=== PATIENT | female | born 1995 | race Two or more races ===

== ENCOUNTER 2025-04-19 08:18 | Outpatient (AMB) | payer MEDICAID, SELFPAY ==
[2025-04-19 08:36] VITALS: BP 121/79; PULSE 83; RESP 16; TEMP 36.2; O2SAT 98; BMI 37.9
--- NOTE | 2025-04-19 08:36 | OBCLNT_ITS ---
Vital Signs 04/19/25 08:36 Height 1.52 m Height Method Stated Weight 88.167 kg Weight Measurement Method Standing Scale BMI 37.9 BP 121/79 Blood Pressure Source Automatic Cuff Blood Pressure Location Left Upper Arm Position Sitting Respiration 16 Pulse 83 Pulse Source Monitor Temp 97.2 F Temp Source Oral Pulse Oximetry (%) 98 Oxygen Delivery Method Room Air Allergies/Home Meds Allergies & Medications Allergies milk Allergy (Unknown, Verified 04/19/25 08:37) Rash Medication Reconciliation aspirin 81 mg tablet,delayed release 81 mg PO QDAY 04/28/22 [History Confirmed 04/19/25] prenat.vits,sebastian,eyk-htro-eqvcz 1 tab PO QDAY 04/28/22 [History Confirmed 04/19/25] aspirin 81 mg tablet,delayed release (Adult Aspirin Regimen) 81 mg PO QDAY #60 tabs 04/19/25 [Rx] vitamin-ferrous fumarate 28 mg iron-folic acid 800 mcg tablet ( Vitamins with Minerals) 1 tab PO QDAY #60 tabs 04/19/25 [Rx] Intake Visit Data Collection New Patient or Established: Established Patient (seen at [facility] within 3 years) Reason for Visit:: OBC Seen by Clinical Staff ONLY (RN/MA): No 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 1. Little interest or pleasure in doing things: not at all 2. Feeling down, depressed, or hopeless: not at all Total score: 0 PHQ-9 3. Trouble falling or staying asleep, or sleeping too much: Not at all 4. Feeling tired or having little energy: Not at all 5. Poor appetite or overeating: Not at all 6. Feeling bad about yourself - or that you are a failure or have let yourself or your family down: Not at all 7. Trouble concentrating on things, such as reading the newspaper or watching television: Not at all 8. Moving or speaking so slowly that other people could have noticed? - Or the opposite - being so fidgety or restless that you have been moving around a lot more than usual: not at all 9. Thoughts that you would be better off or of hurting yourself in some way: Not at all Total score: 0 If you checked off any problems, how difficult have these problems made it for you to do your work, take care of things at home, or get along with other people?: not difficult at all Source: Developed by Drs. Nick Brunner, Lois Lozano, Alton Stewart and colleagues, with an educational lemuel from [email or web address]. Depression screen completed yes Social History Living Situation History Marital Status: Single Lives With: Family Housing: House Housing Other:: Pt lives w/S.O Tobacco History Smoking Status: Never smoker Second Hand Smoke Exposure: No Alcohol History Alcohol Intake: Never Domestic Abuse History Do You Feel Safe at Home: Yes History of Present Illness HPI Narrative 29-year-old 4 para 2 ectopic 1 for OBI. Patient's last period March 05, 2025. EDC based on her last period is December 10, 2025. Patient denies any social habits. Patient had a surgical removal of ectopic . She denies existence of chronic illnesses. However she had lab work done at [facility] a week ago and they told her she was prediabetic. Unplanned . But patient and partner are happy. She has a sure dates she tracks her. 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 Last period March 05, 2025. Estimated due date December 10, 2025. Patient had 1 ectopic. She denies any first trimester discomforts. Denies SAB complaints. And patient was told that she was prediabetic. History of high blood pressure with her first 11 years ago. Low-dose baby aspirin to start at 12 weeks. I gave her prenatals. Discussed SAB precautions. Schedule for ultrasound for viability at [facility]. For labs she is doing OB panel with a hemoglobin A1c. CMP and hCG. Discussed SAB precautions and I also discussed GDM diet and patient is to start on that. Return in 3 weeks for OB check and NIPT Menstrual History Menstrual reliability: definite Flow: normal Menstrual regularity: regular Monthly: Yes Age at menarche: 15 On control pills at conception: No OB History : 3 Para: 2 Hx # Pregnancies: 0 Hx Total # of Abortions (Spontaneous & Elective): 0 # of Living Children: 2 Delivery History 1st : Child's name: NOT PROVIDED date: 05/04/14 sex: female Delivery type: vaginal weight (lbs): 2721.554 g History of depression before or after : No 2nd : Child's name: NOT PROVIDED date: 05/08/22 sex: male Delivery type: vaginal weight (lbs): 3175.147 g History of depression before or after : No Infection History & Risk Evaluation History of STDs: none HIV risk evaluation: low risk Hepatitis B risk evaluation: low risk Patient or partner has history of Genital Herpes: No Varicella/chicken pox status: immunized Genetic Screening & History Genetic Screening/Teratology Counseling - Includes patient, baby's father, or anyone in either family with: 1. Patient's age 35 years or older as of estimated date of delivery: No 2. Thalassemia (English, Amharic, Mediterranean, or Background); MCV less than 80: No 3. Neural Tube Defect (Meningomyelocele, Spina Bifida, or Anencephaly): No 4. Congenital Heart Defect: No 5. Down Syndrome: No 6. Nehemiah-Sachs (Ashkenazi Voodoo, Cajun, Ghanaian [place]): No 7. Lydia Disease (Ashkenazi Voodoo): No 8. Familial Dysautonomia (Ashkenazi Voodoo): No 9. Sickle Cell Disease or Trait (): No 10. Hemophilia or other blood disorders: No 11. Muscular Dystrophy: No 12. Cystic Fibrosis: No 13. Laramie's Chorea: No 14. Mental Retardation/Autism: No 15. Other inherited genetic or chromosomal disorder: No 16. Maternal Metabolic Disorder (EG,TYPE 1 Diabetes, PKU): No 17. Patient or baby's father had a child with defects not listed above: No 18. Recurrent loss or a stillbirth: No 19. Medications (including supplements, vitamins, herbs or otc drugs)/illicit /recreational drugs/alcohol since last menstrual period: No 20. Any other: No Infection History 1. Live with someone with TB or exposed to TB: No 2. Rash or viral illness since last menstrual period: No 3. Hepatitis B,C: No Other (see comments) Source: [employer] Review of Systems Review of Systems Systems Reviewed: All systems reviewed, normal except as documented Exam General Limitations: no limitations General Appearance: alert, in no apparent distress, comfortable, cooperative, healthy appearing, well developed and well groomed Head Head exam: atraumatic, normocephalic and normal inspection Chest Chest inspection: Present normal inspection and symmetric chest wall rise Resp Respiratory exam: Present normal lung sounds bilaterally Card Cardiovascular exam: Present regular rate, normal rhythm and normal heart sounds Abdominal Abdominal exam: Present soft and normal bowel sounds Psych Psychiatric exam: Present normal affect and normal mood Office Procedures OBC Clinic LOC & Office Proc's Nursing/Assessment Patient Status: Established Patient OB Clinic Nursing Assessment: Medication Reconciliation, Update PMH in EMR and Vital Signs OB Clinic Coordination of Care: Education Complex Pt/Fam, Consent,records obtained, informed consent, Lab and Imaging orders, Results/Orders obtained and Staff clarify orders Special Needs: Heart tones Established Patient Charge Established Patient Point Assignment: 115 Established Patient Point Charge: EP Level 3 (80-115) Assessment & Plan Diagnosis / Problem List (1) Supervision of high risk , unspecified, first trimester: Status: Acute Plan . Hemoglobin A1c. hCG. CMP. Discussed GDM diet and advised patient to start. Walk 40 minutes a day. Discussed SAB precautions. Schedule ultrasound at [facility] for viability. I ordered vitamins and low- dose baby aspirin to start at 12 weeks. Return in 4 weeks for OB check and NIPT Additional Plan Follow Up: 4 Weeks (obc)
== END 2025-04-19 08:41 | disposition home or self-care (01) ==
LOC: HODSOBC 08:18
PROVIDERS: Supervising Provider Advanced Practice Midwife; Visit Provider Advanced Practice Midwife
DX: O09.891 Supervision of other high risk pregnancies, first trimester (principal); O99.891 Other specified diseases and conditions complicating pregnancy; R73.03 Prediabetes; O09.11 Supervision of pregnancy with history of ectopic pregnancy, first trimester; Z3A.01 Less than 8 weeks gestation of pregnancy; Z87.59 Personal history of other complications of pregnancy, childbirth and the puerperium; Z91.011 Allergy to milk products
CPT/HCPCS: 99213; G0463

== ENCOUNTER 2025-05-17 08:44 | Outpatient (AMB) | payer MEDICAID, SELFPAY ==
--- NOTE | 2025-05-17 08:48 | OBCLNT_ITS ---
Vital Signs 05/17/25 08:56 Height 1.52 m Height Method Stated Weight 88.677 kg Weight Measurement Method Standing Scale BMI 38.3 BP 118/78 Blood Pressure Source Automatic Cuff Blood Pressure Location Left Upper Arm Position Sitting Respiration 18 Pulse 98 Pulse Source Monitor Temp 97.2 F Temp Source Oral Pulse Oximetry (%) 98 Oxygen Delivery Method Room Air Allergies/Home Meds Allergies & Medications Allergies milk Allergy (Unknown, Verified 05/17/25 08:57) Rash Medication Reconciliation aspirin 81 mg tablet,delayed release 81 mg PO QDAY 04/28/22 [History Confirmed 05/17/25] prenat.vits,sebastian,von-anmo-jnral 1 tab PO QDAY 04/28/22 [History Confirmed 05/17/25] aspirin 81 mg tablet,delayed release (Adult Aspirin Regimen) 81 mg PO QDAY #60 tabs 04/19/25 [Rx Confirmed 05/17/25] vitamin-ferrous fumarate 28 mg iron-folic acid 800 mcg tablet ( Vitamins with Minerals) 1 tab PO QDAY #60 tabs 04/19/25 [Rx Confirmed 05/17/25] ampicillin 500 mg capsule 500 mg PO TID 7 days #21 caps 05/17/25 [Rx] Intake Visit Data Collection New Patient or Established: Established Patient (seen at [facility] within 3 years) Reason for Visit:: obc Seen by Clinical Staff ONLY (RN/MA): No 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 Do You Feel Safe at Home: Yes Authorities Contacted: N/A PCP or OBGYN visit in last 3 months: Yes Date of Last PCP or OBGYN visit: 04/19/25 Hx Now: Yes Are you currently on any form of Control: No Pain Present Currently: No Pain Scale Used: Leggett-Chin/Numerical Smoking Status Smoking Status: Never smoker Immunizations Flu Vaccine in the Last 12 Months: No Flu Vaccine Exclusion Criteria: No Exclusion Criteria Questionnaires Covid-19 Vaccine Questionnaire Has patient been vacinated for Covid-19 Have you been vacinated for Covid-19: No PHQ-9 PHQ-2 Over the last 2 weeks, how often have you been bothered by any of the following problems? 1. Little interest or pleasure in doing things: not at all 2. Feeling down, depressed, or hopeless: not at all Total score: 0 PHQ-9 3. Trouble falling or staying asleep, or sleeping too much: Not at all 4. Feeling tired or having little energy: Not at all 5. Poor appetite or overeating: Not at all 6. Feeling bad about yourself - or that you are a failure or have let yourself or your family down: Not at all 7. Trouble concentrating on things, such as reading the newspaper or watching television: Not at all 8. Moving or speaking so slowly that other people could have noticed? - Or the opposite - being so fidgety or restless that you have been moving around a lot more than usual: not at all 9. Thoughts that you would be better off or of hurting yourself in some way: Not at all Total score: 0 If you checked off any problems, how difficult have these problems made it for you to do your work, take care of things at home, or get along with other people?: not difficult at all Source: Developed by Drs. Nick Brunner, Lois Lozano, Alton Stewart and colleagues, with an educational lemuel from [employer]. 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 Last period March 05, 2025. Estimated due date December 10, 2025. Patient had 1 ectopic. She denies any first trimester discomforts. Denies SAB complaints. And patient was told that she was prediabetic. History of high blood pressure with her first 11 years ago. Low-dose baby aspirin to start at 12 weeks. I gave her prenatals. Discussed SAB precautions. Schedule for ultrasound for viability at [facility]. For labs she is doing OB panel with a hemoglobin A1c. CMP and hCG. Discussed SAB precautions and I also discussed GDM diet and patient is to start on that. Return in 3 weeks for OB check and NIPT 05/17/25 -?-?-?-?-?-?-?-?-?-?-?-?- 9w 2d 88.677 kg 118/78 absent unknown 9 145 absent No bleeding,no spotting, no c/o N/V Schedule MFM halle ointment at [facility]. Discussed SAB precautions. NIPT and carrier screen today. I gave patient a prescription for ampicillin 500 p.o. 3 times daily x 7 for UTI patient has positive GBS in the urine. Discussed SAB precautions and return in 4 weeks OB to THOMAS Calculator Estimated Delivery Date Method Current WG Current Estimate 12/18/25 Ultrasound #1 9w 2d Other Estimates 12/10/25 LMP (Certain) 10w 3d Notes Visit Date: 05/17/25 Last Updated by: Dee Muñiz CNM 04/27: +GBS/urine, rub NI, hiv-,HC-,HBSAG-, A+/ABS-, rpr;;nr, GC/CT-, 12//323, A1: 4.9, CMP wnl Visit Date: 04/19/25 Last Updated by: Dee Muñiz CNM 29 yo . lmp 03/05/25. EDC; 12/10/25 Office Procedures OBC Clinic LOC & Office Proc's Nursing/Assessment Patient Status: Established Patient OB Clinic Nursing Assessment: Medication Reconciliation, Update PMH in EMR and Vital Signs OB Clinic Coordination of Care: Consent,records obtained, informed consent, Lab and Imaging orders, Results/Orders obtained and Staff clarify orders Special Needs: Heart tones Established Patient Charge Established Patient Point Assignment: 95 Established Patient Point Charge: EP Level 3 (80-115) Assessment & Plan Diagnosis / Problem List (1) Supervision of high risk , unspecified, first trimester: Status: Acute Plan review lab, sab precaution, schedule at [facility] for NT and anatomy scan, ampicillin 500 tid x7, sab precaution, rtc 4 week obc Additional Plan Follow Up: 4 Weeks (obc)
[2025-05-17 08:56] VITALS: BP 118/78; PULSE 98; RESP 18; TEMP 36.2; O2SAT 98; BMI 38.3
== END 2025-05-17 10:03 | disposition home or self-care (01) ==
LOC: HODSOBC 08:44
PROVIDERS: Supervising Provider Advanced Practice Midwife; Visit Provider Advanced Practice Midwife
DX: O09.891 Supervision of other high risk pregnancies, first trimester (principal); O23.41 Unspecified infection of urinary tract in pregnancy, first trimester; B95.1 Streptococcus, group B, as the cause of diseases classified elsewhere; Z3A.09 9 weeks gestation of pregnancy
CPT/HCPCS: 99213; G0463

== ENCOUNTER 2025-06-13 10:53 | Outpatient (AMB) | payer MEDICAID, SELFPAY ==
[2025-06-13 11:06] VITALS: BP 111/75; PULSE 91; RESP 18; TEMP 36.8; O2SAT 97; BMI 38.5
--- NOTE | 2025-06-13 11:06 | AMB.OBPNC ---
Vital Signs 06/13/25 11:06 Height 1.52 m Height Method Stated Weight 88.904 kg Weight Measurement Method Standing Scale BMI 38.5 BP 111/75 Blood Pressure Source Automatic Cuff Blood Pressure Location Right Upper Arm Position Sitting Respiration 18 Pulse 91 Pulse Source Monitor Temp 98.3 F Temp Source Temporal Artery Scan Pulse Oximetry (%) 97 Oxygen Delivery Method Room Air Allergies/Home Meds Allergies & Medications Allergies milk Allergy (Unknown, Verified 06/13/25 11:07) Rash Medication Reconciliation aspirin 81 mg tablet,delayed release 81 mg PO QDAY 04/28/22 [History Confirmed 06/13/25] prenat.vits,sebastian,frz-hnrx-hpzri 1 tab PO QDAY 04/28/22 [History Confirmed 06/13/25] aspirin 81 mg tablet,delayed release (Adult Aspirin Regimen) 81 mg PO QDAY #60 tabs 04/19/25 [Rx Confirmed 06/13/25] vitamin-ferrous fumarate 28 mg iron-folic acid 800 mcg tablet ( Vitamins with Minerals) 1 tab PO QDAY #60 tabs 04/19/25 [Rx Confirmed 06/13/25] Immunizations Immunizations Flu Vaccine in the Last 12 Months: No Flu Vaccine Exclusion Criteria: No Exclusion Criteria Care OB Visit Log OB Flowsheet Initial Weight: Not Recorded Date <del>?</del> EGA Weight BP Alb Glu CTX Pres Fundal ht FHR Mov Dilation Station Effacement Hx Notes Visit Note 04/19/25 <del>?</del> 5w 2d 88.167 kg 121/79 absent unknown 6 absent 29-year-old 4 para 2 ectopic 1 for OBI. Last period March 05, 2025. Estimated due date December 10, 2025. Patient had 1 ectopic. She denies any first trimester discomforts. Denies SAB complaints. And patient was told that she was prediabetic. History of high blood pressure with her first 11 years ago. Low-dose baby aspirin to start at 12 weeks. I gave her prenatals. Discussed SAB precautions. [facility]. For labs she is doing OB panel with a hemoglobin A1c. CMP and hCG. Discussed SAB precautions and I also discussed GDM diet and patient is to start on that. Return in 3 weeks for OB check and NIPT 05/17/25 <del>?</del> 9w 2d 88.677 kg 118/78 absent unknown 9 145 absent No bleeding,no spotting, no c/o N/V Schedule MFM appointment at [facility]. Discussed SAB precautions. NIPT and carrier screen today. I gave patient a prescription for ampicillin 500 p.o. 3 times daily x 7 for UTI patient has positive GBS in the urine. Discussed SAB precautions and return in 4 weeks OB to 06/13/25 <del>?</del> 13w 1d 88.904 kg 111/75 absent unknown 13 145 absent Denies bleeding, no leaking, no cramps. No OB complaints Follow-up [facility] July 27. Discussed SAB precautions. And we reviewed diet and weight gain with patient okay. THOMAS Calculator Estimated Delivery Date Method Current WG Current Estimate 12/18/25 Ultrasound #1 13w 1d Other Estimates 12/10/25 LMP (Certain) 14w 2d 12/10/25 Ultrasound #2 14w 2d 12/18/25 Manual 13w 1d final thomas: 12/18/25 Notes Visit Date: 06/13/25 Last Updated by: Dee Muñiz CNM NIPT/carrier screen-/female Visit Date: 05/17/25 Last Updated by: Dee Muñiz CNM 04/27: +GBS/urine, rub NI, hiv-,HC-,HBSAG-, A+/ABS-, rpr;;nr, GC/CT-, /323, A1: 4.9, CMP wnl Visit Date: 04/19/25 Last Updated by: Dee Muñiz CNM 29 yo . lmp 03/05/25. EDC; 12/10/25 Office Procedures OBC Clinic LOC & Office Proc's Nursing/Assessment Patient Status: Established Patient OB Clinic Nursing Assessment: Medication Reconciliation, Update PMH in EMR and Vital Signs OB Clinic Coordination of Care: Complex Care and Chronic Disease 1-5, Education Complex Pt/Fam, Consent,records obtained, informed consent, Lab and Imaging orders, Results/Orders obtained and Staff clarify orders Special Needs: Heart tones Established Patient Charge Established Patient Point Assignment: 140 Established Patient Point Charge: EP Level 4 (120-155) Assessment & Plan Diagnosis / Problem List (1) Supervision of high risk , unspecified, first trimester: Status: Acute (2) Obesity complicating in first trimester: Status: Acute Qualifiers: Obesity type affecting : severe obesity due to excess calories Qualified Code(s): O99.211 - Obesity complicating , first trimester; E66.01 - Morbid (severe) obesity due to excess calories Plan Discussed dates. Discussed labs. aFP next visit. Follow-up [facility] July 27, 2025. Discussed SAB precautions and return in 4 weeks OB check Additional Plan Follow Up: 4 Weeks (obc)
== END 2025-06-13 11:19 | disposition home or self-care (01) ==
LOC: HODSOBC 10:53
PROVIDERS: Supervising Provider Advanced Practice Midwife; Visit Provider Advanced Practice Midwife
DX: O09.891 Supervision of other high risk pregnancies, first trimester (principal); O99.211 Obesity complicating pregnancy, first trimester; Z3A.13 13 weeks gestation of pregnancy; Z91.0110 Allergy to milk products, unspecified
CPT/HCPCS: 99214; G0463

== ENCOUNTER 2025-07-11 10:57 | Outpatient (AMB) | payer MEDICAID, SELFPAY ==
[2025-07-11 11:21] VITALS: BP 117/78; PULSE 88; RESP 16; TEMP 36.7; O2SAT 98; BMI 38.7
--- NOTE | 2025-07-11 11:21 | OBCLNT_ITS ---
Vital Signs 07/11/25 11:21 Height 1.52 m Height Method Stated Weight 89.358 kg Weight Measurement Method Standing Scale BMI 38.7 BP 117/78 Blood Pressure Source Automatic Cuff Blood Pressure Location Left Upper Arm Position Sitting Respiration 16 Pulse 88 Pulse Source Monitor Temp 98.1 F Temp Source Oral Pulse Oximetry (%) 98 Oxygen Delivery Method Room Air Allergies/Home Meds Allergies & Medications Allergies milk Allergy (Unknown, Verified 07/11/25 11:22) Rash Medication Reconciliation aspirin 81 mg tablet,delayed release 81 mg PO QDAY 04/28/22 [History Confirmed 07/11/25] prenat.vits,sebastian,irr-meec-qulvf 1 tab PO QDAY 04/28/22 [History Confirmed 07/11/25] aspirin 81 mg tablet,delayed release (Adult Aspirin Regimen) 81 mg PO QDAY #60 tabs 04/19/25 [Rx Confirmed 07/11/25] vitamin-ferrous fumarate 28 mg iron-folic acid 800 mcg tablet ( Vitamins with Minerals) 1 tab PO QDAY #60 tabs 04/19/25 [Rx Confirmed 07/11/25] Immunizations Immunizations Flu Vaccine in the Last 12 Months: Yes Flu Vaccine Exclusion Criteria: Already Received Care OB Visit Log OB Flowsheet Initial Weight: Not Recorded Date -?-?-?-?-?-?-?-?-?-?-?-?- EGA Weight BP Alb Glu CTX Pres Fundal ht FHR Mov Dilation Station Effacement Hx Notes Visit Note 04/19/25 -?-?-?-?-?-?-?-?-?-?-?-?- 5w 2d 88.167 kg 121/79 absent unknown 6 ab sent 29-year-old 4 para 2 ectopic 1 for OBI. Last period March 05, 2025. Estimated due date December 10, 2025. Patient had 1 ectopic. She denies any first trimester discomforts. Denies SAB complaints. And patient was told that she was prediabetic. History of high blood pressure with her first 11 years ago. Low-dose baby asp irin to start at 12 weeks. I gave her prenatals. Discussed SAB precautions. Schedule for ultrasound for viability at [facility]. For labs she is doing OB panel with a hemoglobin A1c. CMP and hCG. Discussed SAB precautions and I also discussed GDM diet and patient is to start on that. Return in 3 weeks for OB check and NIPT 05/17/25 -?-?-?-?-?-?-?-?-?-?-?-?- 9w 2d 88.677 kg 118/78 absent unknown 9 145 absent No bleeding,no spotting, no c/o N/V Schedule MF halle ointment at [facility]. Discussed SAB precautions. NIPT and carrier screen today. I gave patient a prescription for ampicillin 500 p.o. 3 times daily x 7 for UTI patient has positive GBS in the urine. Discussed SAB precautions and return in 4 weeks OB to 06/13/25 -?-?-?-?-?-?-?-?-?-?-?-?- 13w 1d 88.904 kg 111/75 absent unknown 13 145 absent Denies bleeding, no leaking, no cramps. No OB complaints Follow-up [facility] July 27. Discussed SAB precautions. And we reviewed diet and weight gain with patient okay. 07/11/25 -?-?-?-?-?-?-?-?-?-?-?-?- 17w 1d 89.358 kg 117/78 absent unknown 17 145 absent No OB complaints. No leaking, no bleeding no contractions. Light movement aFP today. Keep appointment with [facility] for ultrasound. Discussed SAB precautions. Return in 4 weeks OB check THOMAS Calculator Estimated Delivery Date Method Current WG Current Estimate 12/18/25 Ultrasound #1 17w 1d Other Estimates 12/10/25 LMP (Certain) 18w 2d 12/10/25 Ultrasound #2 18w 2d 12/18/25 Manual 17w 1d final thomas: 12/18 Notes Visit Date: 06/13/25 Last Updated by: Dee Muñiz CNM NIPT/carrier screen-/female Visit Date: 05/17/25 Last Updated by: Dee Muñiz CNM 04/27: +GBS/urine, rub NI, hiv-,HC-,HBSAG-, A+/ABS-, rpr;;nr, GC/CT-, /323, A1: 4.9, CMP wnl Visit Date: 04/19/25 Last Updated by: Dee Muñiz CNM 29 yo . lmp 03/05/25. EDC; 12/10/25 Office Procedures OBC Clinic LOC & Office Proc's Nursing/Assessment Patient Status: Established Patient OB Clinic Nursing Assessment: Medication Reconciliation, Update PMH in EMR and Vital Signs OB Clinic Coordination of Care: Complex Care and Chronic Disease 1-5, Consent,records obtained, informed consent, Education Simp Pt/Fam, 1 Ins Authorization, Lab and Imaging orders, Results/Orders obtained and Staff clarify orders Special Needs: Heart tones Established Patient Charge Established Patient Point Assignment: 150 Established Patient Point Charge: EP Level 4 (120-155) Assessment & Plan Diagnosis / Problem List (1) Encounter for supervision of high risk in second trimester, antepartum: Status: Acute (2) Obesity complicating in first trimester: Status: Acute Qualifiers: Obesity type affecting : severe obesity due to excess calories Qualified Code(s): O99.211 - Obesity complicating , first trimester; E66.01 - Morbid (severe) obesity due to excess calories Plan aFP today. Keep appointment with [facility] July 27. Discussed SAB precautions. Increase fluids return in 4 weeks OB check Additional Plan Follow Up: 4 Weeks (obc)
== END 2025-07-11 12:03 | disposition home or self-care (01) ==
LOC: HODSOBC 10:57
PROVIDERS: Supervising Provider Advanced Practice Midwife; Visit Provider Advanced Practice Midwife
DX: O09.892 Supervision of other high risk pregnancies, second trimester (principal); O99.212 Obesity complicating pregnancy, second trimester; Z3A.17 17 weeks gestation of pregnancy
CPT/HCPCS: 99214; G0463